=== PATIENT | female | born 1980 | race Caucasian/White ===

== ENCOUNTER → 2016-03-28 | Outpatient (CLI) | payer BC ==
[~2016-03-28] MED LIST: PREN1TAB12; PRENATAL VIT
[2016-03-29 14:51] LABS: ANA SCREEN NEGATIVE (NEGATIVE)
== END | disposition home or self-care (01) ==
LOC: LAB 06:36
PROVIDERS: ATTEND Internal Medicine
DX: R51 Headache (principal)
CPT/HCPCS: 85651; 86038

== ENCOUNTER → 2016-06-25 | Outpatient (CLI) | payer BC | END | disposition home or self-care (01) | LOC: LAB 11:13 | PROVIDERS: ATTEND Obstetrics & Gynecology | DX: Z34.90 Encounter for supervision of normal pregnancy, unspecified, unspecified trimester (principal); Z3A.00 Weeks of gestation of pregnancy not specified | CPT/HCPCS: 84144; 84702; 84703 ==

== ENCOUNTER → 2016-06-28 | Outpatient (CLI) | payer BC | END | disposition home or self-care (01) | LOC: LAB 06:18 | PROVIDERS: ATTEND Obstetrics & Gynecology | DX: Z34.90 Encounter for supervision of normal pregnancy, unspecified, unspecified trimester (principal); Z3A.00 Weeks of gestation of pregnancy not specified | CPT/HCPCS: 84702 ==

== ENCOUNTER → 2016-09-19 | Outpatient (CLI) | payer BC | END | disposition home or self-care (01) | LOC: LAB 07:04 | PROVIDERS: ATTEND Obstetrics & Gynecology | DX: O20.0 Threatened abortion (principal); Z3A.00 Weeks of gestation of pregnancy not specified | CPT/HCPCS: 84144; 84702 ==

== ENCOUNTER → 2016-10-24 | Outpatient (CLI) | payer BC ==
[2016-10-24 09:09] LABS: BASOPHILS % 0.3 % (0.0-2.0); EOSINOPHILS # 0.1 10^3/ul (0.0-0.5); HEMOGLOBIN 11.5 g/dl (12.0-16.0); LYMPHOCYTES # 1.9 10^3/ul (0.8-2.9); LYMPHOCYTES % 27.8 % (15.0-51.0); MEAN CORPUSCULAR HEMOGLOBIN 32.4 pg (29.0-33.0); MEAN CORPUSCULAR HGB CONC 34.8 g/dl (32.0-37.0); MEAN PLATELET VOLUME 9.4 fl (7.4-10.4); MONOCYTE # 0.4 10^3/ul (0.3-0.9); MONOCYTES % 5.4 % (0.0-11.0); NEUTROPHIL # 4.4 10^3/ul (1.6-7.5); NEUTROPHILS % 65.4 % (39.0-77.0); PLATELET COUNT 228 10^3/UL (140-415); RED BLOOD COUNT 3.55 10^6/ul (4.20-5.40); RED CELL DISTRIBUTION WIDTH 12.4 % (11.5-14.5); WHITE BLOOD COUNT 6.7 10^3/ul (4.8-10.8)
[2016-10-24 09:14] LABS: ADD UMIC NO; UR ASCORBIC ACID 20 mg/dL (NEGATIVE); UR BILIRUBIN (Dip) NEGATIVE (NEGATIVE); UR BLOOD (Dip) NEGATIVE (NEGATIVE); UR CLARITY SLIGHTLY CLOUDY (CLEAR); UR COLOR YELLOW (YELLOW); UR GLUCOSE (Dip) NEGATIVE (NEGATIVE); UR KETONES (Dip) NEGATIVE (NEGATIVE); UR LEUKOCYTE ESTERASE (Dip) NEGATIVE Leu/ul (NEGATIVE); UR NITRITE (Dip) NEGATIVE (NEGATIVE); UR RBC 4 /HPF (0-5); UR SPECIFIC GRAVITY (Dip) 1.023 (1.003-1.030); UR SQUAMOUS EPITHELIAL CELL FEW /HPF (FEW); UR TOTAL PROTEIN (Dip) NEGATIVE (NEGATIVE); UR UROBILINOGEN (Dip) NEGATIVE (NEGATIVE)
[2016-10-25 12:13] LABS: RUBELLA ANTIBODY - IGG 2.72 index
== END | disposition home or self-care (01) ==
LOC: LAB 07:55
PROVIDERS: ATTEND Obstetrics & Gynecology
DX: O09.521 Supervision of elderly multigravida, first trimester (principal)
CPT/HCPCS: 81001; 81003; 84443; 85025; 86592; 86703; 86762; 86803; 86850; 86900; 86901; 87340

== ENCOUNTER → 2016-12-13 | Outpatient (CLI) | payer BC | END | disposition home or self-care (01) | LOC: LAB 08:08 | PROVIDERS: ATTEND Obstetrics & Gynecology | DX: Z36 Encounter for antenatal screening of mother (principal) ==

== ENCOUNTER → 2017-03-31 | Outpatient (CLI) | END | disposition home or self-care (01) ==

== ENCOUNTER 2017-05-09 05:22 | Inpatient (IN) | END 2017-05-12 15:42 | disposition home or self-care (01) | DRG 766 ==

== ENCOUNTER → 2017-09-17 | Outpatient (CLI) | END | disposition home or self-care (01) ==

== ENCOUNTER → 2018-05-28 | Outpatient (CLI) | payer BC ==
[~2018-05-28] MED LIST changes: +FERR134T PO; -PRENATAL VIT
== END | disposition home or self-care (01) ==
LOC: LAB 08:23
PROVIDERS: ATTEND Internal Medicine
DX: R10.9 Unspecified abdominal pain (principal); R13.10 Dysphagia, unspecified
CPT/HCPCS: 81003; 85025; 85651

== ENCOUNTER → 2018-06-10 | Outpatient (CLI) | payer BC ==
[~2018-06-10] MED LIST changes: +BARIUM SULFATE 135 ML (E-Z HD) PO ONE
== END | disposition home or self-care (01) ==
LOC: RAD 09:54
PROVIDERS: ATTEND Internal Medicine
DX: R13.10 Dysphagia, unspecified (principal)
CPT/HCPCS: 74230; 92611

== ENCOUNTER → 2018-10-03 | Outpatient (CLI) | payer BC ==
[~2018-10-03] MED LIST changes: -BARIUM SULFATE 135 ML (E-Z HD) PO ONE
== END | disposition home or self-care (01) ==
LOC: LAB 07:20
PROVIDERS: ATTEND Internal Medicine
DX: Z00.00 Encounter for general adult medical examination without abnormal findings (principal)
CPT/HCPCS: 80053; 80061; 81001; 81003; 82306; 84443; 85025; 87086

== ENCOUNTER → 2018-11-19 | Outpatient (CLI) | payer BC | END | disposition home or self-care (01) | LOC: LAB 08:15 | PROVIDERS: ATTEND Internal Medicine | DX: D64.9 Anemia, unspecified (principal) | CPT/HCPCS: 81003; 82270; 82728; 83540 ==